=== PATIENT | female | born 1970 ===

== ENCOUNTER 2018-02-11 09:16 | Day surgery (SDC) | payer BC ==
[2018-02-07 11:10] VITALS: BMI 24.6
[2018-02-11] MEDS ORDERED: Clindamycin 600mg/50ml NS 600 MG/50 ML BAG IVPB ONE (10:29)
[2018-02-11] MEDS ORDERED: Propofol 10 mg/ml Inj (20 ML) ONE (10:35)
[2018-02-11] MEDS ORDERED: Midazolam 2 MG/2 ML VIAL ONE ×2 (10:35→11:04)
[2018-02-11] MEDS ORDERED: DiphenhydrAMINE 50 mg/ml Inj ONE (11:05)
[2018-02-11] MEDS ORDERED: cefTRIAXone (Rocephin) 1 gm Inj IVPB ONE (11:10)
[2018-02-11] MEDS ORDERED: Dexamethasone 4 mg/1 ml ONE (11:14)
[2018-02-11] MEDS ORDERED: Lactated Ringer's 1,000 ML IV ONE (11:25)
[2018-02-11 13:44] VITALS: BP 142/78; PULSE 78; RESP 18; TEMP 98.2; O2SAT 98
--- NOTE | 2018-03-11 20:15 | OP ---
PROCEDURE DATE: 02/11/2018 PREOPERATIVE DIAGNOSES: Lower abdominal pain and left renal colic, rule out obstructing calculus. POSTOPERATIVE DIAGNOSES: Lower abdominal pain and left renal colic, rule out obstructing calculus. PROCEDURE PERFORMED ON THE PATIENT: Cystoscopy with a diagnostic left and right ureteroscopy. DESCRIPTION OF PROCEDURE: The patient was placed in the operating room table in dorsal lithotomy position, the area of the groin was draped and prepped in a sterile manner. After general anesthesia was given and #21 cystoscope was placed into the bladder atraumatically, identifying the entire bladder wall, there was no evidence of any stone within the bladder. Bladder wall was normal shape, no evidence of trabeculation or polyps, or diverticuli were noted. The bladder did not appear to be dropped on this evaluation. Left and right urethral orifices were identified and individually left side and right side although the concentration was on the left side because of her left lower quadrant pain. I did a direct ureteroscopy up to the level of renal pelvis and was unable to see any obstructing calculus. The course and caliber of the ureter was normal. There was no evidence of stricture within the ureter, it appeared to be fine. I did the same evaluation on the right side. After both we noted to be normal, the bladder is normal, then the cystoscope and ureteroscope were all removed. No indwelling appliances were left. The patient was taken from the operating room in good condition. Jeremie Fierro MD
== END 2018-02-11 14:05 | disposition home or self-care (01) ==
LOC: H.OPSURG 09:16
PROVIDERS: ATTEND Urology
DX: N23 Unspecified renal colic (principal); J45.909 Unspecified asthma, uncomplicated; E11.9 Type 2 diabetes mellitus without complications; I10 Essential (primary) hypertension
CPT/HCPCS: 52351; 82948; C1769; J0696; J1100; J1200; J2001; J2250; J2704; J3010; J7120